=== PATIENT | male | born 1985 | race Caucasian/White ===

== ENCOUNTER 2017-06-13 09:52 | Day surgery (SDC) | payer OTHER ==
[2017-06-13] MEDS ORDERED: LIDOCAINE 2% MDV (20MG/ML) 20ML VIAL IV ONE (09:53)
[2017-06-13] MEDS ORDERED: PROPOFOL 10 MG/ML VIAL IV ONE (09:53)
--- NOTE | 2017-06-14 13:50 | Operative Note ---
DATE OF SURGERY: 06/13/2017 OPERATION: ESOPHAGOGASTRODUODENOSCOPY with multiple biopsies. INDICATION: Episodic vomiting. HISTORY: The patient relates that he might have episodes of vomiting perhaps twice a month after eating mostly fatty foods. The cause of this is unclear. He finds no common factors involved with the episodes of vomiting at this point. The remainder of the time he has no symptoms. He denies any bowel irregularity or any previous diseases or illness. He takes no regular medications. He had an ultrasound of the abdomen which was unremarkable. He also states laboratory drawn through his primary care physician's office was also unremarkable. He denies tobacco consumption. He denies alcohol. He denies marijuana usage. ANESTHESIA: Intravenous sedation was administered by the department of anesthesiology and included Diprivan titrated to effect. PROCEDURE: Following informed consent from this alert individual, including a discussion of the risks and benefits of the procedure and an opportunity for the patient to ask questions, the patient was in the left lateral decubitus position. The Olympus [id number] video endoscope was inserted into the esophagus without resistance. The proximal esophagus had a normal appearance with normal folds and distensibility. The mid esophagus likewise was free from changes. The squamocolumnar junction was fairly smooth and well defined with some very slight irregularity. For this reason, biopsies were taken to rule out the remote possibility of Luo's epithelium. The GE junction approximated the diaphragmatic hiatus. The stomach was entered. The gastric fundus and pars media had a normal appearance with normal folds and distensibility. The antrum evaluated circumferentially was also unremarkable. The pylorus was patent. The duodenal bulb, sweep and descending duodenum were examined in a serial fashion and found to be normal. The endoscope was then drawn back into the body of the stomach. Retroflexion accomplished following air insufflation failed to demonstrate any abnormalities. The endoscope was then straightened. Biopsies were taken from the duodenum to rule out the remote possibility of celiac sprue although the mucosa appeared to be unremarkable. The endoscope was then withdrawn. No additional changes were seen. The esophagus again was very slightly irregular at the squamocolumnar junction but otherwise normal. The endoscope was removed. The patient tolerated the procedure well and was returned to the recovery area in stable condition. IMPRESSION: 1. Very slight irregularity of the squamocolumnar junction. Biopsies taken. 2. The stomach was normal and the duodenum was normal. Biopsies taken randomly from this duodenal bulb and second portion of the duodenum to rule out the remote possibility of celiac sprue. RECOMMENDATION: Further recommendations will be forthcoming pending results of biopsy obtained today. Followup will be with Sergio Rose DO. As always, thank you for allowing me to participate in the care of your patient. CC: Sergio Rose DO [facility] CENTERLisbeth
== END 2017-06-13 11:40 | disposition home or self-care (01) ==
LOC: HOP 09:52
PROVIDERS: ATTEND Internal Medicine Gastroenterology
DX: K20.0 Eosinophilic esophagitis (principal)